=== PATIENT | male | born 1940 | race Caucasian/White ===

== ENCOUNTER 2020-01-28 07:18 | Emergency (ER) | payer OTHER, MEDICARE ==
[~2020-01-28] VITALS: Ht 172.7 cm; Wt 74.8 kg
[2020-01-28 09:20] VITALS: BP 127/71
== END 2020-01-28 09:20 | disposition home or self-care (01) ==
LOC: ED 07:18
DX: K59.00 Constipation, unspecified (principal); E78.00 Pure hypercholesterolemia, unspecified; Z91.030 Bee allergy status

== ENCOUNTER 2020-02-07 06:39 | Emergency (ER) | payer OTHER, MEDICARE ==
[~2020-02-07] VITALS: Ht 175.3 cm; Wt 72.6 kg
[2020-02-07 06:45] VITALS: Ht 175.3 cm; Wt 72.6 kg
[2020-02-07 08:57] VITALS: BP 125/69
== END 2020-02-07 08:57 | disposition home or self-care (01) ==
LOC: ED 06:39
DX: M25.462 Effusion, left knee (principal); E78.00 Pure hypercholesterolemia, unspecified; Z91.030 Bee allergy status
CPT/HCPCS: J2001; Q0092